=== PATIENT | male | born 1945 | race Caucasian/White ===

== ENCOUNTER → 2017-07-20 | Outpatient (CLI) | payer MEDICARE, OTHER ==
[~2017-07-20] MED LIST: ASPI-1471 PO; ATOR40TA69 PO; CIP500 PO; CLOP75TA PO; DOC100 PO; ENAL2.5T52 PO; FAM20 PO; IBU600 PO; IBUP-1618 PO; LEV500 PO; LOR5 PO; LOR5/325 PO; NEBI5TAB PO; PHENA200 PO
--- NOTE | 2017-07-20 16:51 | RADIOLOGY IMAGING REPORT ---
FACILITY: [facility] PATIENT NAME: Patric Mejias : 1945 MR: [id number] V: [id number] EXAM DATE: ORDERING PHYSICIAN: CHRISTI HUSTON TECHNOLOGIST: Location: [facility] Patient: Patric Mejias : 1945 Visit/Account:[id number] Date of Sevice: 07/20/2017 EXAMINATION: Single Isotope SPECT Imaging with Exercise and Gated SPECT Imaging DATE OF EXAMINATION: 07/20/2017 DATE OF INTERPRETATION: 07/20/2017 REQUESTING PHYSICIAN: CHRISTI HUSTON INDICATION: The patient is a 71-year-old male evaluated for coronary artery disease. PROCEDURE: After informed consent the patient received an intravenous injection of 12.3 mCi of Tc-9 9m sestamibi followed at the appropriate time interval by rest imaging. The patient then exercised a ccording to the standard Umair protocol for 6 minutes achieving 7.3 METS. Resting heart rate was 57 bpm with a peak heart rate of 148 bpm which is 98 % of maximal predicted heart rate for age. Blood pressure at rest was 132 / 92; blood pressure during exercise was 196 / 87. There was no chest pain during exercise. Exercise was discontinued because of fatigue. Baseline EKG demonstrates sinus rhyt hm with incomplete right bundle branch block. There were no EKG changes of ischemia at peak exercise . Approximately one minute and 30 seconds prior to the termination of exercise, the patient received an intravenous injection of 30.2 mCi of Tc-99m sestamibi followed by stress imaging. RAW DATA: Examination of the summed raw data revealed a technically adequate quality study. There is diaphragmatic attenuation suspected. There is also significant motion artifact during stress imaging . MYOCARDIAL PERFUSION: The tomographic images demonstrate a small sized, moderate intensity fixed def ect involving the apical inferior silva. This defect persists with prone imaging. There is no transie nt ischemic dilation. No reversible ischemia.. GATED IMAGES: The gated images demonstrate normal left ventricular systolic function with ejection f raction greater than 70%. No regional wall motion abnormalities. IMPRESSION: 1. Negative treadmill stress ECG for inducible ischemia with average exercise tolerance achieving 7. 3 METS 2. 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 No ischemia. 3. Normal LV systolic function; LVEF greater than 70%. 4. Compared to previous study in 2013, there has been no significant change. 5. Based on the results of this exam, the patient appears to be at low risk for near term future card iovascular events. Long-term risk is intermediate based on known CAD. Report Dictated By: Huseyin Rey at 07/20/2017 4:39 PM Report E-Signed By: Huseyin eRy at 07/20/2017 4:47 PM WSN:[id number]
--- NOTE | 2017-07-20 18:56 | RT STRESS TEST REPORT ---
[place] [facility] [place] NAME: JAMIE DUNAWAY : [id number] MR: [id number] V: [id number] EXAM DATE: ORDERING PHYSICIAN: CHRISTI HUSTON TECHNOLOGIST: Yaakov Acquisition Time: 2017-07-20 14:18:33 Total Exercise Time: 00:06:13 Test Indications: Screening for CAD Medications: ASA LIPITOR VASOTEC LOPRESSOR Protocol: MARY 2 Max HR: 148 BPM 98% of Pred: 151 BPM Max BP: 196/087 mmHG Max Work Load: 7.3 METS Myoview pending Confirmed by FIGUEROA VERMA ([id number]) on 07/20/2017 6:55:46 PM Referred By: Christi Huston Overread By: FIGUEROA VERMA
== END ==
LOC: NUC 03:43
PROVIDERS: ATTEND Internal Medicine Cardiovascular Disease
DX: I45.10 Unspecified right bundle-branch block (principal)
CPT/HCPCS: 78452; 93017; A9500